=== PATIENT | male | born 1990 | race Caucasian/White ===

== ENCOUNTER 2018-08-07 06:51 | Emergency (ER) | payer OTHER ==
--- NOTE | 2018-08-07 07:11 | EDPHY ---
H & P Time Seen by Provider: 08/07/18 07:10 HPI/ROS: CHIEF COMPLAINT: Aching fever and chills HISTORY OF PRESENT ILLNESS: 27-year-old man returned just now from a three- week surfing trip to [facility] and [facility]. No fresh water exposure but he has had a history of dengue in the past and did have some mosquito exposure. No headache or stiff neck or vomiting or diarrhea. No cough or shortness of breath. No skin rash. He describes a little bit of a sore throat and aching fever and chills and myalgias which [place] airport. Symptoms moderate to severe. Not better or worse with anything. REVIEW OF SYSTEMS: Eye: no change in vision ENT: No earache or facial pain Cardiac: no chest pain or syncope Pulmonary: no cough or SOB Abdomen: no vomiting, diarrhea, abdominal pain Musculoskeletal: HPI Skin: no rash Neuro: no headache Constitutional: HPI : no urinary symptoms A comprehensive 10 point review of systems is otherwise negative aside from elements mentioned in the history of present illness. PAST MEDICAL HISTORY: Dengue fever otherwise negative Social history: Just returned from [facility] General Appearance: Alert and conversant, cooperative. Eyes: No scleral icterus. No pain with extraocular motion. ENT, Mouth: Normal mucous membranes. No pharyngeal erythema or exudate and no trismus. No facial swelling. Respiratory: Normal respiratory effort, breath sounds equal, lungs are clear to auscultation. Cardiovascular: Regular rate and rhythm. Gastrointestinal: Abdomen is soft and non tender. Neurological: Alert, face symmetric, normal motor and sensory in extremities. Skin: Warm and dry, no rashes. Musculoskeletal: No neck stiffness or meningeal signs. Psychiatric: Not agitated. Emergency Department course/MDM: Tylenol and IV fluids. Labs to include CBC chemistry LFT and malaria screening. Strep test sent. 842: Dr. Shrestha recommends blood cultures for typhoid evaluation and he will follow up, supportive care only at this time, will call him and had him follow up in the [facility] this week. Patient is willing to stay in town for at least the next 24 hr. 927: Malaria preliminary called me as negative by the lab. Smoking Status: Current every day smoker Constitutional: Initial Vital Signs Temperature (C) 36.7 C 08/07/18 06:54 Heart Rate 84 08/07/18 06:54 Respiratory Rate 20 08/07/18 06:54 Blood Pressure 151/86 H 08/07/18 06:54 O2 Sat (%) 96 08/07/18 06:54 O2 Delivery Mode Room Air Allergies/Adverse Reactions: No Known Allergies Allergy (Unverified 08/07/18 07:28) Medical Decision Making Differential Diagnosis: Differential considered including but not limited to strep, influenza, sepsis, meningitis, dengue, malaria, typhoid, other viral. Consult/Admit Bed Type: Dr. Wiley Shrestha 842am - Data Points Laboratory Results: Laboratory Results 08/07/18 07:25 08/07/18 07:25 08/07/18 08/07/18 08/07/18 Unknown 07:25 07:25 WBC RBC Hgb Hct MCV MCH MCHC RDW Plt Count MPV Neut % (Auto) Lymph % (Auto) [place] % (Auto) Eos % (Auto) Baso % (Auto) Nucleat RBC Rel Count Absolute Neuts (auto) Absolute Lymphs (auto) Absolute Monos (auto) Absolute Eos (auto) Absolute Basos (auto) Absolute Nucleated RBC Immature Gran % Immature Gran # RBC/WBC/PLT Morphology Platelet Estimate Sodium 135 mEq/L mEq/L (135-145) Potassium 3.9 mEq/L mEq/L (3.5-5.2) Chloride 103 mEq/L mEq/L (97-110) Carbon Dioxide 23 mEq/l mEq/l (22-31) Anion Gap 9 mEq/L mEq/L (6-14) BUN 15 mg/dL mg/dL (7-23) Creatinine 0.8 mg/dL mg/dL (0.7-1.3) Estimated GFR > 60 Glucose 95 mg/dL mg/dL (70-100) Calcium 9.3 mg/dL mg/dL (8.5-10.4) Total Bilirubin 1.3 mg/dL mg/dL (0.1-1.4) Conjugated Bilirubin 0.1 mg/dL mg/dL (0.0-0.5) Unconjugated Bilirubin 1.2 mg/dL H mg/dL (0.0-1.1) AST 26 IU/L IU/L (17-59) ALT 43 IU/L IU/L (21-72) Alkaline Phosphatase 79 IU/L IU/L (38-126) Total Protein 6.3 g/dL g/dL (6.3-8.2) Albumin 4.2 g/dL g/dL (3.5-5.0) Nasal Influenza A PCR Nasal Influenza B PCR Malaria Smear Pending Malaria Sm Path Review Pending Group A Strep Screen Group A Strep DNA Pending 08/07/18 08/07/18 07:25 07:15 WBC 10.84 10^3/uL H 10^3/uL (3.80-9.50) RBC 4.66 10^6/uL 10^6/uL (4.40-6.38) Hgb 15.3 g/dL g/dL (13.7-17.5) Hct 41.6 % % (40.0-51.0) MCV 89.3 fL fL (81.5-99.8) MCH 32.8 pg pg (27.9-34.1) MCHC 36.8 g/dL H g/dL (32.4-36.7) RDW 11.5 % % (11.5-15.2) Plt Count 155 10^3/uL 10^3/uL (150-400) MPV 10.8 fL fL (8.7-11.7) Neut % (Auto) 73.7 % % (39.3-74.2) Lymph % (Auto) 10.7 % L % (15.0-45.0) [place] % (Auto) 14.9 % H % (4.5-13.0) Eos % (Auto) 0.2 % L % (0.6-7.6) Baso % (Auto) 0.2 % L % (0.3-1.7) Nucleat RBC Rel Count 0.0 % % (0.0-0.2) Absolute Neuts (auto) 7.99 10^3/uL H 10^3/uL (1.70-6.50) Absolute Lymphs (auto) 1.16 10^3/uL 10^3/uL (1.00-3.00) Absolute Monos (auto) 1.62 10^3/uL H 10^3/uL (0.30-0.80) Absolute Eos (auto) 0.02 10^3/uL L 10^3/uL (0.03-0.40) Absolute Basos (auto) 0.02 10^3/uL 10^3/uL (0.02-0.10) Absolute Nucleated RBC 0.00 10^3/uL 10^3/uL (0-0.01) Immature Gran % 0.3 % % (0.0-1.1) Immature Gran # 0.03 10^3/uL 10^3/uL (0.00-0.10) RBC/WBC/PLT Morphology TNP Platelet Estimate TNP Sodium Potassium Chloride Carbon Dioxide Anion Gap BUN Creatinine Estimated GFR Glucose Calcium Total Bilirubin Conjugated Bilirubin Unconjugated Bilirubin AST ALT Alkaline Phosphatase Total Protein Albumin Nasal Influenza A PCR NEGATIVE FOR FLU A (NEGATIVE) Nasal Influenza B PCR NEGATIVE FOR FLU B (NEGATIVE) Malaria Smear Malaria Sm Path Review Group A Strep Screen NEGATIVE (NEGATIVE) Group A Strep DNA Medications Given: Discontinued Medications Acetaminophen (Tylenol) 650 mg PO EDNOW ONE Stop: 08/07/18 07:20 Last Admin: 08/07/18 07:28 Dose: 650 mg Sodium Chloride (Ns) 1,000 mls @ 0 mls/hr IV EDNOW ONE; Wide Open PRN Reason: Protocol Stop: 08/07/18 07:20 Last Admin: 08/07/18 07:28 Dose: 1,000 mls Departure - Departure Disposition: Home, Routine, Self-Care Clinical Impression: Fever Qualifiers: Fever type: unspecified Qualified Code(s): R50.9 - Fever, unspecified Condition: Good Instructions: Fever in Adults (ED) Additional Instructions: You had a negative influenza and strep testing today. Platelet count [id number]. Malaria test and blood cultures are pending at this time. Dr. Shrestha is office will call you today to arrange office follow-up with the specialty clinic this week. Okay to use Tylenol 650 mg and/or ibuprofen 600 mg by mouth every 8 hr as needed for fever. Drink plenty of fluids. Referrals: Wiley Shrestha MD [Medical Doctor] - As per Instructions (This week in the office , infectious disease specialist.)
[2018-08-07] MEDS ORDERED: ACETAMINOPHEN 325 MG TAB PO ONE (07:19)
[2018-08-07] MEDS ORDERED: NS 1,000 ML IV ONE (07:19)
[2018-08-07 07:36] LABS: PLATELET COUNT 155 10^3/uL (150-400)
[2018-08-07 08:11] VITALS: BP 126/58
[2018-08-07 09:25] LABS: MALARIAL PREP NONE SEEN (NONE SEEN)
== END 2018-08-07 09:09 | disposition home or self-care (01) ==
DX: R50.9 Fever, unspecified (principal); J02.9 Acute pharyngitis, unspecified; M79.10 Myalgia, unspecified site; Z86.19 Personal history of other infectious and parasitic diseases; F17.200 Nicotine dependence, unspecified, uncomplicated; E86.9 Volume depletion, unspecified